=== PATIENT | female | born 1990 | race Caucasian/White ===

== ENCOUNTER 2018-05-24 07:43 | Inpatient (IN) | payer OTHER ==
[~2018-05-24] VITALS: Ht 154.9 cm; Wt 57.2 kg
[2018-05-24] MEDS ORDERED: PRENATAL TABLE1 EAC1 PO (13:31)
== END 2018-05-26 13:04 | DRG 807 ==
LOC: OB/GYN 07:43 → LDR 07:43 → OB/GYN 20:37
PROC: 10E0XZZ Delivery of Products of Conception, External Approach (ICD-10-PCS; principal; 2018-05-24)
PROC: 3E033VJ Introduction of Other Hormone into Peripheral Vein, Percutaneous Approach (ICD-10-PCS; 2018-05-24)
PROC: 4A1HXCZ Monitoring of Products of Conception, Cardiac Rate, External Approach (ICD-10-PCS; 2018-05-24)
DX: O80 Encounter for full-term uncomplicated delivery (principal); Z37.0 Single live birth; Z3A.38 38 weeks gestation of pregnancy